=== PATIENT | female | born 1945 | race Caucasian/White ===

== ENCOUNTER 2022-07-05 14:22 | Emergency (ER) | payer OTHER ==
[2022-07-05 14:44] VITALS: BP 160/70; PULSE 85; RESP 18; TEMP 98.7; BMI 34.7
[2022-07-05] MEDS ORDERED: ALBUTEROL SO4 2.5/IPRATROPIUM 0.5 INH SOL 3 ML VIAL.NEB. NEB ONE ×3 (15:36→17:38)
[2022-07-05 16:15] LABS: BASO % 0.4 % (0-2.0); EOS % 0.4 % (0-4.5); HEMATOCRIT 44.7 % (32.4-45.2); HEMOGLOBIN 15.5 GM/dL (10.7-15.3); LYMPH % 7.8 % (8-40); MCH 31.8 pg (25.7-33.7); MCHC 34.7 g/dl (32.0-36.0); MEAN CELL VOLUME 91.6 fl (80-96); MEAN PLT VOLUME 9.5 fl (7.5-11.1); MONO % 12.8 % (3.8-10.2); NEUT % 78.6 % (42.8-82.8); PLATELET COUNT 229 10^3/uL (134-434); RBC 4.88 M/mm3 (3.60-5.2); RDW 14.1 % (11.6-15.6); WHITE BLOOD COUNT 9.7 K/mm3 (4.0-10.0)
[2022-07-05 16:27] LABS: INR 1.06 (0.83-1.09); PROTHROMBIN TIME (PATIENT) 12.3 SEC (9.7-13.0)
[2022-07-05] MEDS ORDERED: DEXAMETHASONE SOD PHOSPHATE 10 MG/1 ML VIAL IVPUSH ONE (16:28)
[2022-07-05 16:30] LABS: ACTIVATED PTT 32.2 SECONDS (25.2-36.5); CALCIUM 9.1 mg/dL (8.5-10.1)
[2022-07-05 16:31] LABS: BLOOD UREA NITROGEN 15.3 mg/dL (7-18)
[2022-07-05 16:36] LABS: BILIRUBIN,TOTAL 0.6 mg/dL (0.2-1)
[2022-07-05] MEDS ORDERED: DEXAMETHASONE SOD PHOSPHATE 10 MG/1 ML VIAL ONE (16:36)
[2022-07-05 16:37] LABS: TOT PROT 7.7 g/dl (6.4-8.2)
[2022-07-05] MEDS ORDERED: ALBUTEROL SO4 0.083% IH SOL 2.5 MG/3 ML VIAL.NEB. NEB ONE (17:24)
[2022-07-05] MEDS ORDERED: AZITHROMYCIN 250 MG TABLET PO ONE (18:05)
[2022-07-05] MEDS ORDERED: AZITHROMYCIN 500 MG TABLET ONE (18:16)
== END 2022-07-05 18:58 | disposition left against medical advice (07) ==
LOC: JER 14:22
PROC: 3E0F7GC Introduction of Other Therapeutic Substance into Respiratory Tract, Via Natural or Artificial Opening (ICD-10-PCS; principal; 2022-07-05)
PROC: 3E0F7GC Introduction of Other Therapeutic Substance into Respiratory Tract, Via Natural or Artificial Opening (ICD-10-PCS; 2022-07-05)
PROC: 3E033GC Introduction of Other Therapeutic Substance into Peripheral Vein, Percutaneous Approach (ICD-10-PCS; 2022-07-05)
DX: R06.02 Shortness of breath (principal); R05.1 Acute cough; Z20.822 Contact with and (suspected) exposure to COVID-19
CPT/HCPCS: 0241U-QW; 36415; 71045-TC-FY; 80053; 83880; 84484; 85025; 85610; 85730; 93005; 93010; 94640; 96374; 99285-25; J1100

== ENCOUNTER 2022-09-30 13:53 | Inpatient (IN) | payer OTHER ==
[2022-09-30] MEDS ORDERED: DEXAMETHASONE SOD PHOSPHATE 10 MG/1 ML VIAL IVPUSH ONE (14:57)
[2022-09-30] MEDS ORDERED: ALBUTEROL SO4 2.5/IPRATROPIUM 0.5 INH SOL 3 ML VIAL.NEB. NEB SCH (15:00)
[2022-09-30] MEDS ORDERED: DEXAMETHASONE SOD PHOSPHATE 10 MG/1 ML VIAL ONE (15:06)
[2022-09-30] MEDS ORDERED: ALBUTEROL SO4 2.5/IPRATROPIUM 0.5 INH SOL 3 ML VIAL.NEB. NEB ONE ×3 (15:06→17:55)
[2022-09-30 17:12] LABS: BASO % 0.8 % (0-2.0); EOS % 1.4 % (0-4.5); HEMATOCRIT 44.2 % (32.4-45.2); HEMOGLOBIN 14.7 GM/dL (10.7-15.3); LYMPH % 19.3 % (8-40); MCH 31.2 pg (25.7-33.7); MCHC 33.2 g/dl (32.0-36.0); MEAN PLT VOLUME 10.2 fl (7.5-11.1); MONO % 9.4 % (3.8-10.2); NEUT % 69.1 % (42.8-82.8); PLATELET COUNT 234 10^3/uL (134-434); RDW 14.6 % (11.6-15.6); WHITE BLOOD COUNT 11.2 K/mm3 (4.0-10.0)
[2022-09-30 17:19] LABS: INR 1.01 (0.83-1.09); PROTHROMBIN TIME (PATIENT) 11.7 SEC (9.7-13.0)
[2022-09-30 17:21] LABS: ACTIVATED PTT 29.2 SECONDS (25.2-36.5)
[2022-09-30 17:40] LABS: CHLORIDE 101 mmol/L (98-107); SODIUM 136 mmol/L (136-145)
[2022-09-30 17:41] LABS: CALCIUM 9.1 mg/dL (8.5-10.1)
[2022-09-30 17:42] LABS: BLOOD UREA NITROGEN 13.3 mg/dL (7-18); CO2 33 mmol/L (21-32); GLUCOSE,RANDOM 91 mg/dL (74-106); MAGNESIUM 2.3 mg/dL (1.8-2.4)
[2022-09-30 17:45] LABS: CREATININE 1.1 mg/dL (0.55-1.3); SGOT/AST 52 U/L (15-37)
[2022-09-30 17:47] LABS: BILIRUBIN,TOTAL 0.4 mg/dL (0.2-1); TOT PROT 7.6 g/dl (6.4-8.2)
[2022-09-30 17:48] LABS: ALK PHOS 78 U/L (45-117)
[2022-09-30 17:53] LABS: N-TERMINAL BNP 425.8 pg/ml (5-450)
[2022-09-30 17:54] LABS: ANION GAP 3 MMOL/L (8-16); POTASSIUM 6.9 mmol/L (3.5-5.1); SGPT/ALT 14 U/L (13-61)
[2022-09-30] MEDS ORDERED: MAGNESIUM SULF 50% (8.12 MEQ/2 ML-1 GM VIAL) IVPB ONE (17:55)
[2022-09-30] MEDS ORDERED: MAGNESIUM SULFATE IN WATER 2 GM/50 ML IVPB IVPB ONE (18:28)
[2022-09-30] MEDS ORDERED: ALBUTEROL SO4 HFA INHALER IH PRN (20:15)
[2022-09-30] MEDS ORDERED: FUROSEMIDE 40 MG/4 ML INJECTABLE VIAL IVPUSH ONE (20:43)
[2022-09-30] MEDS ORDERED: ROSUVASTATIN CA 20 MG TABLET PO SCH (22:00)
[2022-09-30] MEDS ORDERED: BUDESONIDE/FORMETEROL FUMARATE 80/4.5 mcg INHALER IH SCH (22:00)
[2022-09-30] MEDS ORDERED: MONTELUKAST NA 10 MG TABLET PO SCH (22:00)
[2022-09-30 22:15] LABS: CHOLESTEROL 157 mg/dL (50-200)
[2022-09-30 22:16] LABS: LDL CHOLESTEROL (ONLY SJRH) 72 mg/dL (5-100)
[2022-09-30 22:18] LABS: HDL CHOLESTEROL 60 mg/dL (40-60)
[2022-09-30] MEDS ORDERED: FUROSEMIDE 40 MG/4 ML INJECTABLE VIAL ONE (23:35)
[2022-10-01 00:27] VITALS: RESP 20; BMI 36.1
[2022-10-01] MEDS: methylPREDNISolone NA SUCC 40 MG/1 ML VIAL IVPUSH SCH ×2 (03:45→10:42)
[2022-10-01] MEDS: LEVALBUTEROL HCL 0.31 MG/3 ML VIAL.NEB IH SCH ×2 (08:01→13:18)
[2022-10-01 08:42] LABS: HEMATOCRIT 47.9 % (32.4-45.2); HEMOGLOBIN 16.1 GM/dL (10.7-15.3); MCH 31.3 pg (25.7-33.7); MCHC 33.6 g/dl (32.0-36.0); MEAN CELL VOLUME 93.3 fl (80-96); MEAN PLT VOLUME 10.1 fl (7.5-11.1); PLATELET COUNT 238 10^3/uL (134-434); RBC 5.13 M/mm3 (3.60-5.2); RDW 14.2 % (11.6-15.6); WHITE BLOOD COUNT 12.7 K/mm3 (4.0-10.0)
[2022-10-01 09:06] LABS: ALBUMIN 4.1 g/dl (3.4-5.0); BLOOD UREA NITROGEN 15.6 mg/dL (7-18); CALCIUM 9.9 mg/dL (8.5-10.1)
[2022-10-01 09:10] LABS: BILIRUBIN,TOTAL 0.4 mg/dL (0.2-1); TOT PROT 7.7 g/dl (6.4-8.2)
[2022-10-01 09:58] LABS: PH,URINE 5.5 (5.0-8.0); URINE APPEARANCE CLEAR; URINE BILIRUBIN NEGATIVE (NEGATIVE); URINE COLOR YELLOW; URINE GLUCOSE (UA) NEGATIVE (NEGATIVE); URINE KETONE NEGATIVE (NEGATIVE); URINE LEUK ESTERASE NEGATIVE (NEGATIVE); URINE NITRITE NEGATIVE (NEGATIVE); URINE PROTEIN NEGATIVE (NEGATIVE); URINE UROBILINOGEN 0.2 mg/dL (0.2-1.0)
[2022-10-01] MEDS ORDERED: HYDROCHLOROTHIAZIDE 12.5 MG CAPSULE (FP) PO SCH ×2 (10:00)
[2022-10-01] MEDS ORDERED: PATIENT'S OWN MEDICATION (NON-FORMULARY) (Lisinopril/Hydrochlorothiazide [Lisinopril-Hctz PO SCH ×2 (10:00)
[2022-10-01] MEDS ORDERED: ENOXAPARIN NA (PORCINE) 40 MG/0.4 ML DISP.SYRIN SQ SCH (10:00)
[2022-10-01] MEDS ORDERED: ESCITALOPRAM OXALATE 10 MG TABLET PO SCH (10:00)
[2022-10-01] MEDS ORDERED: PATIENT'S OWN MEDICATION (NON-FORMULARY) (Escitalopram Oxalate [Lexapro -] 5 MG Tablet) PO SCH (10:00)
[2022-10-01] MEDS ORDERED: SPIRONOLACTONE 25 MG TABLET PO SCH ×2 (10:00)
[2022-10-01] MEDS ORDERED: amLODIPine BESYLATE 10 MG TABLET (FP) PO SCH ×2 (10:00)
[2022-10-01] MEDS ORDERED: LISINOPRIL 20 MG TABLET PO SCH ×2 (10:00)
[2022-10-01 15:10] VITALS: BP 138/63; PULSE 74; TEMP 98
== END 2022-10-01 17:13 | disposition home or self-care (01) | DRG 203 ==
LOC: JER 13:53 → OBSVTOIN 18:31 → JERBED 18:31 → J4W 22:57
PROVIDERS: ADMIT Internal Medicine; ATTEND Internal Medicine
DX: J45.901 Unspecified asthma with (acute) exacerbation (principal); I10 Essential (primary) hypertension; I25.10 Atherosclerotic heart disease of native coronary artery without angina pectoris; E66.9 Obesity, unspecified; Z68.36 Body mass index [BMI] 36.0-36.9, adult
CPT/HCPCS: 0241U-QW; 36415; 71045-TC-FY; 71275-TC; 80053; 80061; 81003; 83735; 83880; 84132; 84443; 84484; 85025; 85027; 85610; 85730; 93005; 93010; 93306-TC; 93970-TC; 94150; 99285-25; J1100; Q9967